=== PATIENT | female | born 2000 | race Hispanic/Latino ===

== ENCOUNTER → 2023-04-03 | Emergency (ER) | payer SELFPAY ==
[~2023-04-03] MED LIST: MORPHINE 4 MG/ML SYR ONE; NA CHLORIDE 0.9% 1,000 ML ONE; ONDANSETRON 4 MG/2 ML VIAL ONE
--- OUTSIDE RECORDS SUMMARY | 2023-04-03 19:21 | XMS REPORT | Continuity of Care Document ---
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
[2023-04-03 20:46] LABS: Specific Gravity 1.005 (1.005-1.030); Specific Gravity < 1.005 (1.005-1.030); Urine Bacteria <20 /HPF (<20); Urine Bilirubin NEGATIVE (Negative); Urine Blood Negative (Negative); Urine Clarity Turbid (Clear); Urine Color Colorless (Yellow); Urine Crystals Unidentified Few /HPF (None Seen); Urine Glucose NEGATIVE (Negative); Urine Protein NEGATIVE (Negative); Urine RBC <5 /HPF (None Seen); Urine Urobilinogen Normal (Normal); Urine WBC Clump Rare /HPF (None Seen); Urine pH 6.5 (5.0-7.0)
[2023-04-03 20:47] LABS: Absolute Lymphocytes (CBC) 1.7 K/uL (0.7-4.9); Hematocrit 34.8 % (36.0-45.0); Lymphocytes % 18.2 % (15.3-44.8); MCV 88.3 fL (80-100); MPV 7.5 fL (7.6-11.3); Platelets 280 thou/uL (152-406); RBC Red Blood Cell Count 3.94 M/uL (3.86-4.86)
[2023-04-03 21:05] LABS: Albumin 3.8 g/dL (3.4-5.0); Bilirubin Total 0.4 mg/dL (0.2-1.0); Potassium 3.2 mEq/L (3.5-5.1); Protein, Total 7.6 g/dL (6.4-8.2)
--- NOTE | 2023-04-03 22:05 | RAD REPORT ---
EXAM DESCRIPTION: CTAbdomen Pelvis W Contrast - 04/03/2023 9:56 pm CLINICAL HISTORY: Abdominal pain. ABD PAIN COMPARISON: No comparisons TECHNIQUE: Biphasic CT imaging of the abdomen and pelvis was performed with 100 ml non-ionic IV cont rast. All CT scans are performed using dose optimization technique as appropriate and may include automated exposure control or mA/KV adjustment according to patient size. FINDINGS: The lung bases are clear. The liver, spleen, pancreas, adrenal glands and kidneys are within normal limits. No bowel obstruction, free air, free fluid or abscess. The appendix is normal. No evidence of signi ficant lymphadenopathy. 27 mm right ovarian follicle. No suspicious bony findings. IMPRESSION: No acute intra-abdominal or pelvic finding.
--- NOTE | 2023-04-03 22:24 | ER ---
Nurse's Notes [facility] Name: Chantale Robin Age: 22 yrs Sex: Female : 2000 Arrival Date: 04/03/2023 Time: 19:19 Bed 7 Private MD: Diagnosis: Other ovarian cysts Presentation: 04/03 19:50 Chief complaint: Patient states: one week pain in the kidney area, right, with dysuria rv and pain when urinating, took unprescribed amoxicillin at home, pain is getting worse. nausea and diarrhea 5x in 4 hours. denies fever. 19:58 Coronavirus screen: At this time, the client does not indicate any symptoms associated rv with coronavirus-19. Ebola Screen: No symptoms or risks identified at this time. Initial Sepsis Screen: Does the patient meet any 2 criteria? No. Patient's initial sepsis screen is negative. Does the patient have a suspected source of infection? No. Patient's initial sepsis screen is negative. Risk Assessment: Do you want to hurt yourself or someone else? Patient reports no desire to harm self or others. Onset of symptoms was April 03, 2023. 19:58 Method Of Arrival: Ambulatory rv 19:58 Acuity: LUANN 3 rv Triage Assessment: 19:59 General: Appears uncomfortable, Behavior is calm, cooperative. Pain: Complains of pain rv in right femoral area and suprapubic area. Neuro: Level of Consciousness is awake, alert, obeys commands, Oriented to person, place, time, situation. Cardiovascular: Capillary refill < 3 seconds Patient's skin is warm and dry. Respiratory: Airway is patent Respiratory effort is even, unlabored. GI: Abdomen is round non-distended. : No signs and/or symptoms were reported regarding the genitourinary system. Derm: Skin is intact. Historical: - Allergies: 20:45 Reglan; tm6 20:45 hydralazine; tm6 - PMHx: 19:59 Hypertension; rv - PSHx: 19:59 section; rv - Immunization history:: Adult Immunizations up to date. - Social history:: Smoking status: Patient denies any tobacco usage or history of. Screenin:01 [facility] ED Fall Risk Assessment (Adult) History of falling in the last 3 months, rv including since admission No falls in past 3 months (0 pts) Score/Fall Risk Level 0 - 2 = Low Risk Oriented to surroundings, Maintained a safe environment, Educated pt \T\ family on fall prevention, incl call for assistance when getting out of bed, Assessed \T\ reinforced patient's understanding of fall precautions. Abuse screen: Denies threats or abuse. Denies injuries from another. Nutritional screening: No deficits noted. Tuberculosis screening: No symptoms or risk factors identified. Assessment: 20:46 General: Appears uncomfortable, Behavior is calm, cooperative. Pain: Complains of pain tm6 in right lower quadrant and right femoral area Pain currently is 10 out of 10 on a pain scale. Neuro: Level of Consciousness is awake, alert, obeys commands, Oriented to person, place, time, situation. Cardiovascular: Capillary refill < 3 seconds Patient's skin is warm and dry. Respiratory: Airway is patent Respiratory effort is even, unlabored, Respiratory pattern is regular, symmetrical. GI: Bowel sounds present X 4 quads. Abdomen is tender to palpation in right lower quadrant and right femoral area Reports lower abdominal pain. : No signs and/or symptoms were reported regarding the genitourinary system. EENT: No signs and/or symptoms were reported regarding the EENT system. Derm: No signs and/or symptoms reported regarding the dermatologic system. Musculoskeletal: No signs and/or symptoms reported regarding the musculoskeletal system. 20:49 GI: Reports diarrhea. : Reports burning with urination. tm6 21:30 Reassessment: Patient appears in no apparent distress at this time. Patient and/or pf1 family updated on plan of care and expected duration. Pain level reassessed. Patient is alert, oriented x 3, equal unlabored respirations, skin warm/dry/pink. Patient states symptoms have improved. 22:30 Reassessment: Patient appears in no apparent distress at this time. Patient and/or pf1 family updated on plan of care and expected duration. Pain level reassessed. Patient is alert, oriented x 3, equal unlabored respirations, skin warm/dry/pink. Patient states feeling better. Patient states symptoms have improved. Vital Signs: 19:58 BP 135 / 82; Pulse 116; Resp 19; Pulse Ox 100% ; Height 5 ft. 4 in. ; rv 20:46 BP 131 / 75; Pulse 90; Pulse Ox 100% ; Pain 10/10; tm6 21:30 BP 131 / 63; Pulse 72; Resp 16; Pulse Ox 100% on R/A; Pain 0/10; pf1 22:30 BP 127 / 74; Pulse 86; Resp 16; Pulse Ox 100% on R/A; Pain 0/10; pf1 20:46 Pain Scale: Adult tm6 21:30 Pain Scale: Adult pf1 22:30 Pain Scale: Adult pf1 ED Course: 19:27 Patient arrived in ED. kj1 19:34 Shannan Gutiérrez PA-C is PHCP. sb4 19:34 Clark Lanier MD is Attending Physician. sb4 19:59 Triage completed. rv 19:59 Arm band placed on right wrist. rv 20:02 Patient has correct armband on for positive identification. Placed in gown. Bed in low pf1 position. Call light in reach. 20:31 Inserted saline lock: 20 gauge in right antecubital area, using aseptic technique. tm6 21:58 CT Abd/Pelvis - IV Contrast Only In Process Unspecified. EDMS 22:23 Vicki Joshi MD is Referral Physician. sb4 22:50 No provider procedures requiring assistance completed. IV discontinued, intact, pf1 bleeding controlled, No redness/swelling at site. Pressure dressing applied. 22:55 Provided Education on: prescription and follow up with MOVING WORKER. pf1 Administered Medications: 20:44 Drug: NS 0.9% IV 1000 ml IV at 1 bolus Per protocol; 1000 mL bolus Route: IV; Rate: 1 tm6 bolus; Site: right antecubital; 21:40 Follow up: Response: No adverse reaction; Marked relief of symptoms; IV Status: pf1 Completed infusion; IV Intake: 1000ml 20:44 Drug: Ondansetron IVP 4 mg IVP once; over 2 minutes Route: IVP; Site: right antecubital;tm6 21:40 Follow up: Response: No adverse reaction; Marked relief of symptoms pf1 20:44 Drug: morphine IVP or IV 4 mg IVP once over 4 mins Route: IVP; Infused Over: 4 mins; tm6 Site: right antecubital; 21:40 Follow up: Response: No adverse reaction; Marked relief of symptoms; Pain is decreased; pf1 RASS: Alert and Calm (0) Medication: 20:01 VIS not applicable for this client. rv Intake: 21:40 IV: 1000ml; Total: 1000ml. pf1 Outcome: 22:23 Discharge ordered by . sb4 22:53 Discharged to home via wheelchair, with family, pf1 22:53 Condition: improved 22:53 Discharge instructions given to patient, family, Instructed on discharge instructions, follow up and referral plans. Demonstrated understanding of instructions, follow-up care, medications, Prescriptions given X 1, Product Development Intern Rocio ID#[id number] used for discharge instructions. 22:55 Patient left the ED. pf1 Signatures: Dispatcher [employer] EDMS Brennan Newton RN RN rv Elo Anders [email or web address] Shannan Gutiérrez, PA-C PA-C [email or web address] Lucina Gaitan RN RN pf1 Warren Stanley RN RN tm6 Corrections: (The following items were deleted from the chart) 19:59 19:50 Chief complaint: Patient states: one week, pain kidney area, right, dysuria, took rv amoxicillin, pain is getting worse. pain when urinating. nausea and diarrhea 5x in 4 hours. denies fever. rv 20:45 19:59 Allergies: No Known Allergies; rv tm6
--- NOTE | 2023-04-03 22:24 | EDPHYS ---
Physician Documentation [facility] Name: Chantale Robin Age: 22 yrs Sex: Female : 2000 Arrival Date: 04/03/2023 Time: 19:19 Bed 7 Private MD: ED Physician Clark Lanier HPI: 04/03 20:02 This 22 yrs old Female presents to ER via Ambulatory with complaints of sb4 Abdominal Pain. 20:02 The patient presents with abdominal pain right lower quadrant. Onset: The sb4 symptoms/episode began/occurred 4 day(s) ago. The symptoms do not radiate. Associated signs and symptoms: Pertinent positives: diarrhea, dysuria. The patient has not experienced similar symptoms in the past. The patient has not recently seen a physician. right flank and RLQ pain for a few days now associated with diarrhea. also endorses dysuria. Historical: - Allergies: 20:45 Reglan; tm6 20:45 hydralazine; tm6 - PMHx: 19:59 Hypertension; rv - PSHx: 19:59 section; rv - Immunization history:: Adult Immunizations up to date. - Social history:: Smoking status: Patient denies any tobacco usage or history of. ROS: 20:02 Constitutional: Negative for fever, chills, and weight loss, sb4 20:02 Abdomen/GI: Positive for abdominal pain, nausea, diarrhea, 20:02 Back: Positive for flank pain, on the right, 20:02 : Positive for injury or acute deformity, burning with urination, 20:02 All other systems are negative, Exam: 20:02 Head/Face: Normocephalic, atraumatic. Eyes: Extra-ocular motions intact. Periorbital sb4 areas with no swelling, redness, or edema. ENT: Mucous membranes moist. Cardiovascular: Regular rate and rhythm with a normal S1 and S2. Respiratory: Lungs have equal breath sounds bilaterally, clear to auscultation and percussion. No rales, rhonchi or wheezes noted. No increased work of breathing, no retractions or nasal flaring. Skin: Warm, dry with normal turgor. Normal color with no rashes, no lesions, and no evidence of cellulitis. MS/ Extremity: Pulses equal, no cyanosis. Neurovascular intact. Full, normal range of motion. Neuro: Awake and alert, GCS 15, oriented to person, place, time, and situation. Motor strength 5/5 in all extremities. Sensory grossly intact. 20:02 Constitutional: The patient appears alert, awake, uncomfortable, 20:02 Abdomen/GI: Inspection: abdomen appears normal, Bowel sounds: normal, Palpation: soft, moderate abdominal tenderness, in the right lower quadrant and left lower quadrant, Vital Signs: 19:58 BP 135 / 82; Pulse 116; Resp 19; Pulse Ox 100% ; Height 5 ft. 4 in. ; rv 20:46 BP 131 / 75; Pulse 90; Pulse Ox 100% ; Pain 10/10; tm6 21:30 BP 131 / 63; Pulse 72; Resp 16; Pulse Ox 100% on R/A; Pain 0/10; pf1 22:30 BP 127 / 74; Pulse 86; Resp 16; Pulse Ox 100% on R/A; Pain 0/10; pf1 20:46 Pain Scale: Adult tm6 21:30 Pain Scale: Adult pf1 22:30 Pain Scale: Adult pf1 MDM: 20:02 Patient medically screened. sb4 20:02 Differential diagnosis: appendicitis, Ectopic , non-specific abd pain, sb4 Pyelonephritis, Ureterolithiasis, urinary tract infection. 22:22 Data reviewed: vital signs, nurses notes, lab test result(s), radiologic studies, and sb4 as a result, I will discharge patient. Counseling: I had a detailed discussion with the patient and/or guardian regarding the historical points, exam findings, and any diagnostic results supporting the discharge/admit diagnosis, lab results, radiology results, the need for outpatient follow up, an OB/Gyne specialist, to return to the emergency department if symptoms worsen or persist or if there are any questions or concerns that arise at home. 04/03 20:01 Order name: CBC with Diff; Complete Time: 20:59 sb4 04/03 20:01 Order name: CMP; Complete Time: 21:07 sb4 04/03 20:01 Order name: Lipase; Complete Time: 21:07 sb4 04/03 20:01 Order name: Test, Urine; Complete Time: 20:59 sb4 04/03 20:01 Order name: Urinalysis w/ reflexes; Complete Time: 20:59 sb4 02/15 20:01 Order name: CT Abd/Pelvis - IV Contrast Only; Complete Time: 22:07 sb4 04/03 20:01 Order name: IV Saline Lock; Complete Time: 20:31 sb4 04/03 20:01 Order name: Labs collected and sent; Complete Time: 20: sb4 Administered Medications: 20:44 Drug: NS 0.9% IV 1000 ml IV at 1 bolus Per protocol; 1000 mL bolus Route: IV; Rate: 1 tm6 bolus; Site: right antecubital; 21:40 Follow up: Response: No adverse reaction; Marked relief of symptoms; IV Status: pf1 Completed infusion; IV Intake: 1000ml 20:44 Drug: Ondansetron IVP 4 mg IVP once; over 2 minutes Route: IVP; Site: right antecubital;tm6 21:40 Follow up: Response: No adverse reaction; Marked relief of symptoms pf1 20:44 Drug: morphine IVP or IV 4 mg IVP once over 4 mins Route: IVP; Infused Over: 4 mins; tm6 Site: right antecubital; 21:40 Follow up: Response: No adverse reaction; Marked relief of symptoms; Pain is decreased; pf1 RASS: Alert and Calm (0) Disposition Summary: 04/03/23 22:23 Discharge Ordered Notes: Location: Home sb4 Problem: new sb4 Symptoms: have improved sb4 Condition: Stable sb4 Diagnosis - Other ovarian cysts sb4 Followup: sb4 - With: Vicki Joshi MD - When: 1 week - Reason: Further diagnostic work-up, Recheck today's complaints, Re-evaluation by your physician Discharge Instructions: - Discharge Summary Sheet sb4 - Ovarian Cyst, [id number] sb4 Forms: - Medication Reconciliation Form sb4 - Thank You Letter sb4 - Antibiotic Education sb4 - Prescription Opioid Use sb4 - Patient Portal Instructions sb4 - Leadership Thank You Letter sb4 Prescriptions: - Diclofenac Sodium 75 mg Oral Tablet Sustained Release - take 1 tablet ORAL route 2 times per day; 30 tablet; Refills: 0, Product sb4 Selection Permitted Addendum: 04/05/2023 04:22 I was immediately available for consultation during this patient's visit. I did not e c2 personally see the patient or discuss the patient with the MARIZA. . Signatures: Dispatcher [employer] Brennan Cuenca RN RN Shannan Vieira PA-C P[place]urton sb4 Clark Lanier MD MD ec2 Warren Stanley RN RN tm6 Lucina Gaitan RN pf1 Corrections: (The following items were deleted from the chart) 04/03 20:45 19:59 Allergies: No Known Allergies; rv tm6
[2023-04-03 23:31] VITALS: BP 127/74; O2SAT 100
== END ==
LOC: ER 19:19
DX: N83.291 Other ovarian cyst, right side (principal)
CPT/HCPCS: 36415; 74177; 80053; 81001; 81025; 83690; 85025; 96361; 96374; 96375; 99284; J2405; J7030; Q9967